=== PATIENT | female | born 1990 | race Caucasian/White ===

== ENCOUNTER 2024-08-12 14:54 | Emergency (ER) | payer OTHER ==
[~2024-08-12] VITALS: Ht 167.6 cm; Wt 90.7 kg
[~2024-08-12 14:54] MED LIST: AMOXICILLIN500 MG PO
[2024-08-12 15:15] VITALS: PULSE 114; RESP 20; TEMP 98.1; O2SAT 98
[2024-08-12] MEDS ORDERED: PREDNISONE50 MG PO (15:31)
[2024-08-12] MEDS ORDERED: PEPCID20 MG PO (15:33)
[2024-08-12] MEDS: DEXAMETHASONE SOD PHOS INJ 4 MG/ML SDV IM ONE (15:39)
[2024-08-12] MEDS: DEXAMETHASONE SOD PHOS INJ 4 MG/ML SDV IV ONE (15:40)
== END 2024-08-12 16:10 | disposition home or self-care (01) ==
LOC: FSED 14:58
DX: T63.441A Toxic effect of venom of bees, accidental (unintentional), initial encounter (principal); I10 Essential (primary) hypertension; F17.210 Nicotine dependence, cigarettes, uncomplicated
CPT/HCPCS: 99282; J1100